=== PATIENT | female | born 1960 | race Two or more races ===

== ENCOUNTER → 2021-07-18 | Emergency (ER) | payer OTHER ==
[~2021-07-18] VITALS: Ht 165.1 cm; Wt 83.9 kg
[~2021-07-18] MED LIST: KETO10TA2 PO
== END ==
LOC: ER 13:54
DX: D25.2 Subserosal leiomyoma of uterus (principal); N95.0 Postmenopausal bleeding; R10.2 Pelvic and perineal pain

== ENCOUNTER 2021-07-21 16:39 | Emergency (ER) | payer OTHER ==
[~2021-07-21] VITALS: Ht 165.1 cm; Wt 84.4 kg
== END 2021-07-21 18:04 | disposition home or self-care (01) ==
LOC: ER 16:39
DX: R20.2 Paresthesia of skin (principal); R51.9 Headache, unspecified

== ENCOUNTER 2021-09-02 17:11 | Emergency (ER) | payer OTHER ==
[~2021-09-02] VITALS: Ht 165.1 cm; Wt 63.5 kg
[2021-09-02] MEDS ORDERED: PYRIDIUM200 MG PO (22:37)
== END 2021-09-02 22:44 | disposition home or self-care (01) ==
LOC: ER 17:11
DX: N30.90 Cystitis, unspecified without hematuria (principal); R51.9 Headache, unspecified; N28.1 Cyst of kidney, acquired; E03.9 Hypothyroidism, unspecified

== ENCOUNTER 2021-09-25 17:11 | Emergency (ER) | payer OTHER ==
[~2021-09-25] VITALS: Ht 165.1 cm; Wt 87.1 kg
[~2021-09-25 17:11] MED LIST changes: +PYRIDIUM200 MG PO
[2021-09-25] MEDS ORDERED: BUTALBIT-ACETA1 EACH PO (19:36)
== END 2021-09-25 19:56 | disposition home or self-care (01) ==
LOC: ER 17:11
DX: G43.909 Migraine, unspecified, not intractable, without status migrainosus (principal); R42 Dizziness and giddiness; R11.0 Nausea

== ENCOUNTER 2022-02-26 00:34 | Inpatient (IN) | payer OTHER ==
[~2022-02-26] VITALS: Ht 165.1 cm; Wt 86.2 kg
[~2022-02-26 00:34] MED LIST changes: +BUTALBIT-ACETA1 EACH PO
[2022-02-26] MEDS ORDERED: SYNTHROID50 MCG (00:48)
== END 2022-02-27 17:47 | disposition home or self-care (01) | DRG 313 ==
LOC: ER 00:34 → SEC-K 10:21 → MEDI 13:09
PROVIDERS: ADMIT Internal Medicine; ATTEND Internal Medicine
PROC: B246ZZZ Ultrasonography of Right and Left Heart (ICD-10-PCS; principal; 2022-02-26)
DX: R07.89 Other chest pain (principal); G43.809 Other migraine, not intractable, without status migrainosus; Z20.822 Contact with and (suspected) exposure to COVID-19

== ENCOUNTER 2022-06-24 15:58 | Emergency (ER) | payer OTHER ==
[~2022-06-24] VITALS: Ht 165.1 cm; Wt 86.2 kg
[~2022-06-24 15:58] MED LIST changes: +SYNTHROID50 MCG
== END 2022-06-24 22:19 | disposition home or self-care (01) ==
LOC: ER 15:58
DX: J40 Bronchitis, not specified as acute or chronic (principal)

== ENCOUNTER 2023-06-10 17:35 | Emergency (ER) | payer OTHER ==
[~2023-06-10] VITALS: Ht 165.1 cm; Wt 86.2 kg
[2023-06-10 18:47] LABS: HEMATOCRIT 42.2 % (36.0-45.00); HEMOGLOBIN 14.5 g/dL (12.0-15.00); MEAN CELL VOLUME 94.8 fL (80.00-100.00); MEAN CORPUSCULAR HEMOGLOBIN 32.5 pg (27.00-32.0); MEAN CORPUSCULAR HGB CONC 34.3 g/dl (32.0-36.0); PLATELET COUNT 160 K/uL (150-450); RED BLOOD COUNT 4.46 M/uL (4.00-6.00); RED CELL DISTRIBUTION WIDTH 13.1 % (11.5-14.5)
== END 2023-06-10 20:08 | disposition home or self-care (01) ==
LOC: ER 17:35
PROVIDERS: General Practice
DX: J10.1 Influenza due to other identified influenza virus with other respiratory manifestations (principal)

== ENCOUNTER 2023-11-28 17:36 | Emergency (ER) | payer OTHER ==
[~2023-11-28] VITALS: Ht 165.1 cm; Wt 81.6 kg
[2023-11-28] MEDS ORDERED: BUTALB/ACETAMINOPHEN/CAFFEINE 1 TAB TABLET PO ONE (19:00)
== END 2023-11-28 21:18 | disposition left against medical advice (07) ==
LOC: ER 17:37
DX: R51.9 Headache, unspecified (principal)